=== PATIENT | female | born 1935 ===

== ENCOUNTER 2017-05-02 13:27 | Emergency (ER) | payer MEDICARE, OTHER ==
--- NOTE | 2017-05-02 14:20 | ED PDOC ---
HPI: Hypertension/Hypotension Time Seen by Provider: 05/02/17 14:02 Chief Complaint (Nursing): High Blood Pressure Chief Complaint (Provider): Headache, nausea, HTN History Per: Patient History/Exam Limitations: no limitations Onset/Duration Of Symptoms: Days Current Symptoms Are (Timing): Still Present Associated Symptoms: Headache. denies: Chest Pain, Dyspnea, Dizziness, Blurred Vision, Focal Weakness Additional Complaint(s): Pt states the 3 days ago she had headache, nausea and was unable to eat. Pt states 2 days ago she felt better but yesterday and headache and nausea returned. Pt states she tried to see a doctor but all the offices she went to required an appointment. Pt states she went to the pharmacy and when they core checker her BP it was high. The pharmacist told patient to come to the ER. Pt states her face feels hot now. Headache on the top her her head. Pt denies PMHx but states she has not been seen by a doctor in many many years. Past Medical History Reviewed: Historical Data, Nursing Documentation, Vital Signs Vital Signs: Last Vital Signs Temp 98.1 F 05/02/17 13:42 Pulse 79 05/02/17 13:42 Resp 18 05/02/17 13:42 BP 159/97 H 05/02/17 13:42 Pulse Ox 99 05/02/17 13:42 - Medical History PMH: Kidney Stones - Surgical History Surgical History: No Surg Hx - Family History Family History: States: No Known Family Hx - Living Arrangements Living Arrangements: Alone - Social History Current smoker - smoking cessation education provided: No Alcohol: None Drugs: Denies - Home Medications Home Medications: Ambulatory Orders Medication Instructions Recorded hydroCHLOROthiazide [Microzide] 12.5 mg PO DAILY #30 cap 05/02/17 - Allergies Allergies/Adverse Reactions: Allergies Allergy/AdvReac Type Severity Reaction Status Date / Time acetaminophen [From Tylenol] Allergy RASH Verified 03/12/16 13:36 Penicillins Allergy RASH Verified 03/12/16 13:36 Review of Systems ROS Statement: Except As Marked, All Systems Reviewed And Found Negative Constitutional: Negative for: Fever, Chills Respiratory: Negative for: Cough, Shortness of Breath Gastrointestinal: Positive for: Vomiting Genitourinary Female: Negative for: Dysuria, Frequency, Pelvic Pain Neurological: Positive for: Headache Physical Exam - Reviewed Nursing Documentation Reviewed: Yes Vital Signs Reviewed: Yes - Physical Exam Appears: Positive for: Well, Non-toxic, No Acute Distress Head Exam: Positive for: ATRAUMATIC, NORMAL INSPECTION, NORMOCEPHALIC Skin: Positive for: Normal Color, Warm, DRY Eye Exam: Positive for: EOMI, Normal appearance, PERRL ENT: Positive for: Normal ENT Inspection Neck: Positive for: Normal, Painless ROM Cardiovascular/Chest: Positive for: Regular Rate, Rhythm Respiratory: Positive for: CNT, Normal Breath Sounds Gastrointestinal/Abdominal: Positive for: Normal Exam, Bowel Sounds, Soft. Negative for: Tenderness Back: Positive for: Normal Inspection Extremity: Positive for: Normal ROM Neurologic/Psych: Positive for: Alert, Oriented - Laboratory Results Result Diagrams: 05/02/17 14:33 05/02/17 14:33 - ECG O2 Sat by Pulse Oximetry: 99 Disposition - Clinical Impression Clinical Impression: Headache, Hypertension - Patient ED Disposition Is Patient to be Admitted: No Counseled Patient/Family Regarding: Diagnosis, Need For Followup - Disposition Referrals: Benjie Main MD [Staff Provider] - Disposition: Routine/Home Disposition Time: 19:28 Condition: STABLE Additional Instructions: Please follow-up with PCP. Prescriptions: hydroCHLOROthiazide [Microzide] 12.5 mg PO DAILY #30 cap Instructions: Headache, Adult Forms: [facility] (Serbian) Print Language: ICELANDIC
[2017-05-02 14:47] LABS: BASO % 0.3 % (0.0-2.0); EOS % 0.5 % (0.0-4.0); HEMOGLOBIN 12.9 g/dL (12.0-16.0); LYMPH # 1.5 K/uL (1.0-4.3); LYMPH % 27.2 % (20.0-40.0); MEAN CELL VOLUME 86.6 fl (81.0-99.0); MEAN CORPUSCULAR HEMOGLOBIN 29.2 pg (27.0-31.0); MEAN CORPUSCULAR HGB CONC 33.7 g/dL (33.0-37.0); MEAN PLATELET VOLUME 7.1 fl (7.2-11.7); MONO # 0.5 K/uL (0.0-0.8); MONO % 8.4 % (0.0-10.0); NEUT # 3.4 K/uL (1.8-7.0); NEUT % 63.6 % (50.0-75.0); NRBC % 0.3 % (0.0-0.0); RBC 4.41 Mil/uL (3.80-5.20); RED CELL DISTRIBUTION WIDTH 14.9 % (11.5-14.5); WHITE BLOOD COUNT 5.4 K/uL (4.8-10.8)
[2017-05-02 14:52] LABS: INR 1.1 (0.9-1.2); PARTIAL THROMBOPLASTIN TIME 28.7 Seconds (25.6-37.1); PROTHROMBIN TIME 11.9 Seconds (9.8-13.1)
--- NOTE | 2017-05-02 15:10 | CT ---
PROCEDURE: CT HEAD WITHOUT CONTRAST. HISTORY: headache, vomited COMPARISON: 09/30/2014 TECHNIQUE: Axial computed tomography images were obtained through the head/brain without intravenous contrast. Coronal and sagittal reconstructed images. Radiation dose: Total exam DLP = 838.83 mGy-cm. This CT exam was performed using one or more of the following dose reduction techniques: Automated exposure control, adjustment of the mA and/or kV according to patient size, and/or use of iterative reconstruction technique. FINDINGS: HEMORRHAGE: No intracranial hemorrhage. BRAIN: No mass effect or edema. Cortical atrophy, periventricular small vessel disease. VENTRICLES: Unremarkable. No hydrocephalus. CALVARIUM: Unremarkable. PARANASAL SINUSES: Unremarkable as visualized. No significant inflammatory changes. MASTOID AIR CELLS: Unremarkable as visualized. No inflammatory changes. OTHER FINDINGS: None. IMPRESSION: No acute intracranial abnormalities. No significant findings to account for the clinical presentation. No significant interval change compared to the prior examination(s).
[2017-05-02 15:11] LABS: ALB/GLOB RATIO 1.1 (1.0-2.1); ALBUMIN 4.1 g/dL (3.5-5.0); ALT/SGPT 22 U/L (9-52); AST/SGOT 20 U/L (14-36); BLOOD UREA NITROGEN 17 mg/dl (7-17); CALCIUM 9.6 mg/dL (8.4-10.2); GFR AFRICAN-AMERICAN > 60; GFR NON-AFRICAN AMERICAN > 60
[2017-05-02 18:34] VITALS: TEMP 97.7
[2017-05-02 19:30] VITALS: O2SAT 99
[2017-05-02 19:39] VITALS: BP 136/78; PULSE 81; RESP 17
== END 2017-05-02 20:20 | disposition home or self-care (01) ==
LOC: H.ER 13:27
DX: I10 Essential (primary) hypertension (principal); Z87.442 Personal history of urinary calculi; R51 Headache; Z88.0 Allergy status to penicillin

== ENCOUNTER 2017-08-28 08:54 | Emergency (ER) | payer MEDICARE, OTHER ==
[2017-08-28 09:05] VITALS: BMI 25.6
[2017-08-28 09:13] VITALS: BP 124/72; PULSE 90; TEMP 99.3; O2SAT 97
[2017-08-28 09:15] VITALS: RESP 18
--- NOTE | 2017-08-28 09:15 | ED PDOC ---
Lower Extremity Pain/Injury Time Seen by Provider: 08/28/17 09:08 History Per: Patient Onset/Duration Of Symptoms: Days (2) Current Symptoms Are (Timing): Still Present Severity: Mild Pain Scale Rating Of: 3 Additional Complaint(s): Injured left knee while pushing baby carriage 2 days ago. Developed pain and swelling, worse on ambulation. Past Medical History - Medical History PMH: Kidney Stones - Family History Family History: States: Unknown Family Hx - Home Medications Home Medications: Ambulatory Orders Medication Instructions Recorded hydroCHLOROthiazide [Microzide] 12.5 mg PO DAILY #30 cap 05/02/17 Naproxen [Naprosyn] 500 mg PO Q12H #20 tab 08/28/17 - Allergies Allergies/Adverse Reactions: Allergies Allergy/AdvReac Type Severity Reaction Status Date / Time acetaminophen [From Tylenol] Allergy RASH Verified 03/12/16 13:36 Penicillins Allergy RASH Verified 03/12/16 13:36 Review of Systems Constitutional: Negative for: Fever Musculoskeletal: Positive for: Other (knee) Neurological: Negative for: Weakness, Numbness Physical Exam - Physical Exam Appears: Positive for: Non-toxic, No Acute Distress Skin: Positive for: Normal Color, Warm, DRY Extremity: Positive for: Normal ROM, Swelling (medial aspect of left knee), Other (Superficial varicosities lower ext bilat). Negative for: Calf Tenderness , Deformity Disposition - Clinical Impression Clinical Impression: Knee sprain, DJD (degenerative joint disease) of knee - Patient ED Disposition Is Patient to be Admitted: No Counseled Patient/Family Regarding: Studies Performed, Diagnosis, Need For Followup, Rx Given - Disposition Referrals: FAMILY PROVIDER,NO [Primary Care Provider] - Charlotte Lloyd MD [Staff Provider] - Disposition: Routine/Home Disposition Time: 10:20 Condition: FAIR Prescriptions: Naproxen [Naprosyn] 500 mg PO Q12H #20 tab Instructions: Knee Sprain (DC), Osteoarthritis
--- NOTE | 2017-08-28 11:13 | RAD ---
PROCEDURE: Left Knee Radiographs. HISTORY: Pain. COMPARISON: None. FINDINGS: BONES: No acute fracture. JOINTS: Mild tricompartmental narrowing with trace degenerative spurring. JOINT EFFUSION: Small suprapatellar joint effusion. OTHER FINDINGS: Quadriceps tendon enthesophyte. IMPRESSION: Small suprapatellar joint effusion. No demonstrated fracture dislocation. Mild tricompartmental degenerative changes.
== END 2017-08-28 10:48 | disposition home or self-care (01) ==
LOC: H.ER 08:54
DX: M17.12 Unilateral primary osteoarthritis, left knee (principal); Z88.0 Allergy status to penicillin

== ENCOUNTER 2017-11-16 16:24 | Emergency (ER) | payer MEDICARE, OTHER ==
[2017-11-16 16:25] VITALS: BMI 25.6
[2017-11-16 16:47] VITALS: RESP 16; TEMP 98.5
--- NOTE | 2017-11-16 17:42 | ED PDOC ---
Upper Extremity Pain/Injury Time Seen by Provider: 11/16/17 16:51 Chief Complaint (Nursing): Finger,Hand,&Wrist Chief Complaint (Provider): Finger,Hand,&Wrist History Per: Patient History/Exam Limitations: no limitations Additional Complaint(s): Patient is a 82 y/o female who presents to the ED for evaluation of a left hand and wrist injury. Patient reports that she has been having pain to the base of her left thumb for the past year but yesterday she struck that area against a door and since the injury, she has had increased pain and swelling. Patient reports taking 1 tab of Motrin at 10:00am with no relief. She denies any other complaints or prior wrist injury. PMD: Héctor Garrido Past Medical History Reviewed: Historical Data, Nursing Documentation, Vital Signs Vital Signs: Last Vital Signs Temp 98.5 F 11/16/17 16:45 Pulse 84 11/16/17 16:45 Resp 16 11/16/17 16:45 BP 158/85 H 11/16/17 16:45 Pulse Ox 99 11/16/17 16:45 - Medical History PMH: Arthritis, HTN, Kidney Stones - Surgical History Surgical History: (x1) - Family History Family History: States: Unknown Family Hx - Home Medications Home Medications: Ambulatory Orders Medication Instructions Recorded RX: hydroCHLOROthiazide [Microzide] 12.5 mg PO DAILY #30 cap 05/02/17 Naproxen [Naprosyn] 500 mg PO Q12H #20 tab 08/28/17 Meloxicam [Mobic] 15 mg PO DAILY PRN #14 tab 11/16/17 RX: traMADol [Ultram] 50 mg PO Q6 PRN #10 tab 11/16/17 - Allergies Allergies/Adverse Reactions: Allergies Allergy/AdvReac Type Severity Reaction Status Date / Time acetaminophen [From Tylenol] Allergy RASH Verified 11/16/17 16:44 Penicillins Allergy RASH Verified 11/16/17 16:44 Review of Systems ROS Statement: Except As Marked, All Systems Reviewed And Found Negative Musculoskeletal: Positive for: Hand Pain (left ), Other (left wrist pain) Physical Exam - Reviewed Nursing Documentation Reviewed: Yes Vital Signs Reviewed: Yes - Physical Exam Comments: GENERAL APPEARANCE: Patient is awake, alert, oriented x 3, in no acute distress. Resting comfortably. SKIN: Warm, dry; (-) cyanosis. NECK: Supple ENT: Airway patent, (-) stridor. Mucus membranes moist. CHEST AND RESPIRATORY: (-) rales, (-) rhonchi, (-) wheezes; breath sounds equal bilaterally. Respirations even and nonlabored. HEART AND CARDIOVASCULAR: (-) irregularity LEFT UPPER EXTREMITY: proximal aspect of first metacarpal:(+) tenderness, (+) edema (-) erythema (-) ecchymosis (-) skin break. (+) positive scaphoid tenderness. (+) tenderness to distal aspect of radius. Decrease ROM of wrist secondary to pain; full ROM of digits. Sensation and capilary refill intact. (+)pulses 2+. Remainder of upper extremity nontender with FROM. - ECG O2 Sat by Pulse Oximetry: 99 (RA) Pulse Ox Interpretation: Normal Medical Decision Making Medical Decision Making: Impression: Acute on chronic wrist pain, possible scaphoid injury. Initial Plan: Ibuprofen RAD - hand left RAD - wrist left Re-evaluation 1854 Hand XR PROCEDURE: Left Hand Radiographs. HISTORY: pain, swelling COMPARISON: None. FINDINGS: BONES: Osteopenia. No acute fracture. JOINTS: Diffuse joint space narrowing. SOFT TISSUES: Normal. OTHER FINDINGS: None. IMPRESSION: No demonstrated fracture or dislocation. Degenerative changes. Wrist XR Date of service: 11/16/2017 PROCEDURE: Left Wrist Radiographs. HISTORY: POSS SCAPHOID INJURY COMPARISON: None. FINDINGS: BONES: Osteopenia. Nondisplaced scaphoid waist fracture. JOINTS: Diffuse joint space narrowing. SOFT TISSUES: Normal. OTHER FINDINGS: None. IMPRESSION: Osteopenia. Nondisplaced scaphoid waist fracture. Repeat BP: 130/89 Thumb spica splint placed by [employer]. Placement and application verified by Steven GONZALEZ. NV intact after placement. On re-evaluation, patient reports improvement of symptoms. On exam, patient remains AAOx3, in no acute distress. Lungs clear to auscultation, cardiac RRR, repeat neuro exam shows no focal findings. VSS, stable for discharge. Lab/Diagnostic results d/w the patient in great detail. Diagnosis of acute wrist pain, scaphoid fracture d/w the patient. Based on history, exam and diagnostic results, plan will be for outpatient follow up with ortho. Patient instructed to follow-up with pmd / referral provided / the clinic in 1- 2 days without fail. Advised to take medication as prescribed. Return to the emergency room at any time for any new or worsening symptoms. Patient states she fully agrees with and understands discharge instructions. States that she agrees with the plan and disposition. Verbalized and repeated discharge instructions and plan. I have given the patient opportunity to ask any additional questions. Scribe Attestation: Documented by Samuel Pressley, acting as a scribe for Amy Harris PA-C. Provider Scribe Attestation: All medical record entries made by the Scribe were at my direction and personally dictated by me. I have reviewed the chart and agree that the record accurately reflects my personal performance of the history, physical exam, medical decision making, and the department course for this patient. I have also personally directed, reviewed, and agree with the discharge Disposition - Clinical Impression Clinical Impression: Scaphoid fracture of wrist, Wrist pain, acute, Wrist swelling - Patient ED Disposition Is Patient to be Admitted: No Counseled Patient/Family Regarding: Studies Performed, Diagnosis, Need For Followup, Rx Given - Disposition Referrals: Kevin Dumont MD [Medical Doctor] - Pato Garrido MD [Medical Doctor] - Disposition: Routine/Home Disposition Time: 18:56 Condition: STABLE Additional Instructions: The emergency medical care you received today was directed towards the acute presenting symptoms. If you were prescribed any medication, please fill it and give as directed. It may take several days for your symptoms to resolve. Return to the Emergency Department at any time if symptoms worsen, do not improve, or if any other problems arise. Please contact your doctor in 2 days for re-evaluation and follow up / or call one of the physicians/clinics you have been referred to that are listed on the Patient Visit Information form that is included in your discharge packet. Bring any paperwork you were given at discharge with you along with any medications to your follow up visit. Our treatment cannot replace ongoing medical care by a primary care provider (PCP) outside of the emergency department. Prescriptions: Meloxicam [Mobic] 15 mg PO DAILY PRN #14 tab PRN Reason: Pain, Moderate (4-7) RX: traMADol [Ultram] 50 mg PO Q6 PRN #10 tab PRN Reason: Pain, Severe (8-10) Instructions: Wrist Fracture (DC), Common Wrist Injuries Forms: [facility] (Yakut) Print Language: LAO - POA Present On Arrival: None
--- NOTE | 2017-11-16 18:48 | RAD ---
PROCEDURE: Left Hand Radiographs. HISTORY: pain, swelling COMPARISON: None. FINDINGS: BONES: Osteopenia. No acute fracture. JOINTS: Diffuse joint space narrowing. SOFT TISSUES: Normal. OTHER FINDINGS: None. IMPRESSION: No demonstrated fracture or dislocation. Degenerative changes.
--- NOTE | 2017-11-16 18:48 | RAD ---
Date of service: 11/16/2017 PROCEDURE: Left Wrist Radiographs. HISTORY: POSS SCAPHOID INJURY COMPARISON: None. FINDINGS: BONES: Osteopenia. Nondisplaced scaphoid waist fracture. JOINTS: Diffuse joint space narrowing. SOFT TISSUES: Normal. OTHER FINDINGS: None. IMPRESSION: Osteopenia. Nondisplaced scaphoid waist fracture.
[2017-11-16 19:29] VITALS: BP 130/89
[2017-11-16 20:31] VITALS: PULSE 72
[2017-11-18 22:40] VITALS: O2SAT 99
== END 2017-11-16 20:31 | disposition home or self-care (01) ==
LOC: H.ER 16:24
DX: S62.002A Unspecified fracture of navicular [scaphoid] bone of left wrist, initial encounter for closed fracture (principal); W22.8XXA Striking against or struck by other objects, initial encounter; Y92.89 Other specified places as the place of occurrence of the external cause; I10 Essential (primary) hypertension; Z88.0 Allergy status to penicillin